=== PATIENT | male | born 1955 | race Two or more races ===

== ENCOUNTER 2019-03-24 08:13 | Emergency (ER) | payer OTHER ==
[~2019-03-24] VITALS: Ht 167.6 cm; Wt 91.4 kg
--- NOTE | 2019-03-24 08:27 | NUR ---
Pt ambulated to room from triage with steady gait and balance. NADN. No obvious defecits observed.
--- NOTE | 2019-03-24 08:46 | NUR ---
Pt resting on gurney. NADN. [employer] order dispatcher chief at bedside. EDPA at bedside. Pt c/o pain of posterior occipital area of head. Pt c/o n/v and dizziness for two days. Pt denies trauma, syncope, cp, sob. CMS intact. Pt c/o of abdominal pain. Pt denies significant past medical history or home medicaitons. Pt connected to pulse ox and NIBP cuff. Call light within reach. Bedrails up x 2 for safety measures. No other needs expressed at this time.
[2019-03-24] MEDS ORDERED: SODIUM CHLORIDE FLUSH 10ML SYR IVF ONE (09:00)
[2019-03-24] MEDS ORDERED: DIPHENHYDRAMINE 50 MG/ML, 1ML IVPush ONE (09:00)
[2019-03-24] MEDS ORDERED: PROCHLORPERAZINE 5 MG/ML, 2ML IVPush ONE (09:00)
[2019-03-24] MEDS ORDERED: PROCHLORPERAZINE 5 MG/ML, 2ML ONE (09:27)
[2019-03-24] MEDS ORDERED: DIPHENHYDRAMINE 50 MG/ML, 1ML ONE (09:28)
[2019-03-24 09:41] LABS: BASOPHILS # (AUTO) 0.02 x10^3/uL (0-0.1); BASOPHILS % (AUTO) 0 % (0-1); EOSINOPHILS # (AUTO) 0.06 x10^3/uL (0-0.4); EOSINOPHILS % (AUTO) 1 % (1-7); LYMPHOCYTES # (AUTO) 1.06 x10^3/uL (1-3.4); LYMPHOCYTES % (AUTO) 19 % (22-44); MD NO; MEAN CORPUSCULAR HEMOGLOBIN 30.1 pg (27.5-34.5); MEAN CORPUSCULAR HGB CONC 33.8 g/dL (33.2-36.2); MEAN PLATELET VOLUME 10.2 fL (7.4-10.4); MONOCYTES % (AUTO) 5 % (2-9); NEUTROPHILS % (AUTO) 75 % (42-75); PLATELET COUNT 124 x10^3/uL (130-400); RED BLOOD COUNT 5.36 x10^6/uL (4.38-5.82); RED CELL DISTRIBUTION WIDTH 13.1 % (9.4-14.8)
[2019-03-24 09:53] LABS: ALANINE AMINOTRANSFERASE 33 U/L (12-78); ALBUMIN 3.6 g/dL (3.4-5.0); ANION GAP 8 mmol/L (5-15); CALCIUM 8.6 mg/dL (8.5-10.1); CHLORIDE 107 mmol/L (98-107)
[2019-03-24 09:56] LABS: ALKALINE PHOSPHATASE 107 U/L (45-117); BILIRUBIN,TOTAL 1.2 mg/dL (0.2-1.0); TOTAL PROTEIN 7.3 g/dL (6.4-8.2)
[2019-03-24] MEDS ORDERED: LISINOPRIL 5 MG TABLET PO ONE (11:00)
[2019-03-24] MEDS ORDERED: ONDANSETRON 2MG/ML, 2ML ONE (11:21)
[2019-03-24] MEDS ORDERED: LISINOPRIL 5 MG TABLET ONE (11:22)
[2019-03-24] MEDS ORDERED: MORPHINE SULFATE 4 MG/ML, 1ML ONE (11:22)
--- NOTE | 2019-03-24 11:27 | NUR ---
GIVEN MEDS VSS STABLE
[2019-03-24] MEDS ORDERED: ONDANSETRON 2MG/ML, 2ML IVPush ONE (11:30)
[2019-03-24] MEDS ORDERED: MORPHINE SULFATE 4 MG/ML, 1ML IVPush PRN (11:30)
[2019-03-24 12:41] VITALS: BP 119/71
--- NOTE | 2019-03-24 12:43 | NUR ---
Patient/Caregiver given discharge instructions and they have confirmed that they understand the instructions. Patient ambulatory with steady gait. 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
== END 2019-03-24 12:44 | disposition home or self-care (01) ==
LOC: ED 10:12
DX: G44.52 New daily persistent headache (NDPH) (principal); I10 Essential (primary) hypertension
CPT/HCPCS: 36415; 70450; 80053; 85025; 93005; 96374; 96375; 99284; J0780; J1200; J2270; J2405

== ENCOUNTER 2019-10-24 14:24 | Emergency (ER) | payer OTHER ==
[~2019-10-24] VITALS: Ht 172.7 cm; Wt 93.2 kg
[2019-10-24 14:26] VITALS: BP 145/74
--- NOTE | 2019-10-24 14:47 | NUR ---
PT CAME IN CO OF SWELLING AND PAIN IN BOTH HANDS X 5DAYS.
== END 2019-10-24 15:47 | disposition home or self-care (01) ==
LOC: ED 15:40
DX: L30.9 Dermatitis, unspecified (principal); I10 Essential (primary) hypertension
CPT/HCPCS: 99283

== ENCOUNTER 2019-12-12 11:26 | Emergency (ER) | payer OTHER ==
[~2019-12-12] VITALS: Ht 167.6 cm; Wt 93.8 kg
--- NOTE | 2019-12-12 12:10 | NUR ---
DENIES ANY ISSUES AT THIS TIME WANTS A CHECK FOR COVID
[2019-12-12 12:52] VITALS: BP 142/76
== END 2019-12-12 12:54 | disposition home or self-care (01) ==
LOC: ED 12:23
DX: R05 Cough (principal); I10 Essential (primary) hypertension; F17.200 Nicotine dependence, unspecified, uncomplicated
CPT/HCPCS: 71045; 99283